=== PATIENT | female | born 1985 | race Caucasian/White ===

== ENCOUNTER → 2017-03-22 | Outpatient (CLI) | payer MEDICAID | END | disposition home or self-care (01) | LOC: CFH 12:20 | PROVIDERS: ATTEND Nurse Practitioner Family | DX: N64.9 Disorder of breast, unspecified (principal) ==

== ENCOUNTER → 2018-04-19 | Outpatient (CLI) | payer MEDICAID ==
[~2018-04-19] MED LIST: OMNIPAQUE 350 MG/ML, 100ML BOTTLE ONE
== END | disposition home or self-care (01) ==
LOC: RAD 15:51
PROVIDERS: ATTEND Nurse Practitioner Family
DX: G51.0 Bell's palsy (principal); J45.909 Unspecified asthma, uncomplicated; R53.83 Other fatigue; H57.12 Ocular pain, left eye
CPT/HCPCS: 70460; Q9967

== ENCOUNTER 2019-11-09 05:23 | Inpatient (IN) | payer MEDICAID ==
[~2019-11-09] VITALS: Ht 160 cm; Wt 79.0 kg
[2019-11-09] MEDS ORDERED: NEWBORN KIT ONE (05:27)
[2019-11-09] MEDS ORDERED: SODIUM CITRATE/CITRIC ACID 30 ML UDC ONE (05:28)
[2019-11-09] MEDS ORDERED: OXYTOCIN 30U/ 0.9% NaCL 500ML 500 ML ONE (05:28)
[2019-11-09] MEDS ORDERED: METOCLOPRAMIDE 5 MG/ML, 2ML ONE (05:28)
[2019-11-09 05:30] VITALS: BP 119/72
[2019-11-09] MEDS ORDERED: SODIUM CITRATE/CITRIC ACID 30 ML UDC PO ONE (05:30)
[2019-11-09] MEDS ORDERED: METOCLOPRAMIDE 5 MG/ML, 2ML IV ONE (05:30)
[2019-11-09] MEDS ORDERED: LACTATED RINGERS 1,000 ML IVBOLUS ONE (05:30)
[2019-11-09 05:54] LABS: BASOPHILS # (AUTO) 0.03 x10^3/uL (0-0.1); BASOPHILS % (AUTO) 0 % (0-1); EOSINOPHILS # (AUTO) 0.07 x10^3/uL (0-0.4); EOSINOPHILS % (AUTO) 1 % (1-7); LYMPHOCYTES # (AUTO) 1.67 x10^3/uL (1-3.4); LYMPHOCYTES % (AUTO) 22 % (22-44); MD NO; MEAN CORPUSCULAR HEMOGLOBIN 29.8 pg (27.0-34.8); MEAN CORPUSCULAR HGB CONC 33.2 g/dL (32.4-35.8); MEAN CORPUSCULAR VOLUME 89.8 fL (80-100); MEAN PLATELET VOLUME 8.8 fL (7.4-10.4); MONOCYTES # (AUTO) 0.46 x10^3/uL (0.2-0.8); MONOCYTES % (AUTO) 6 % (2-9); NEUTROPHILS # (AUTO) 5.41 x10^3/uL (1.8-6.8); NEUTROPHILS % (AUTO) 71 % (42-75); PLATELET COUNT 231 x10^3/uL (130-400); RED BLOOD COUNT 4.49 x10^6/uL (3.82-5.3); RED CELL DISTRIBUTION WIDTH 14.6 % (9.6-15.2)
[2019-11-09] MEDS: LACTATED RINGERS 1,000 ML IV SCH ×6 (07:14→19:05)
[2019-11-09] MEDS ORDERED: ONDANSETRON 2MG/ML, 2ML ONE (07:34)
[2019-11-09] MEDS ORDERED: SODIUM CHLORIDE 0.9% PF 10ML ONE (07:34)
[2019-11-09] MEDS ORDERED: WATER-INJECTION,STERILE 10 ML IV ONE (07:34)
[2019-11-09] MEDS ORDERED: DEXAMETHASONE 4 MG/ML, 1ML ONE (07:34)
[2019-11-09] MEDS ORDERED: CEFAZOLIN 1,000 MG ONE (07:34)
[2019-11-09] MEDS ORDERED: OXYTOCIN 10 UNITS/ML, 1ML ONE ×2 (07:34→07:50)
[2019-11-09] MEDS ORDERED: morphine SULFATE/PF 0.5 MG/ML, 10ML ONE (07:34)
[2019-11-09] MEDS ORDERED: PHENYLEPHRINE 10 MG/ML ONE (07:34)
[2019-11-09] MEDS ORDERED: KETOROLAC 30 MG/1 ML ONE (07:34)
[2019-11-09] MEDS: OXYTOCIN 30U/ 0.9% NaCL 500ML 500 ML IV SCH ×2 (09:15→19:05)
[2019-11-09] MEDS ORDERED: BISACODYL 10 MG SUPP PR PRN (09:30)
[2019-11-09] MEDS ORDERED: TRANEXAMIC ACID 1,000 MG in SODIUM CHLORIDE 0.9% 100 ML IVPB ONE (09:30)
[2019-11-09] MEDS ORDERED: IBUPROFEN 800 MG TABLET PO PRN (09:30)
[2019-11-09] MEDS ORDERED: morphine SULFATE 10 MG/ML, 1ML IV PRN (09:30)
[2019-11-09] MEDS ORDERED: MORPHINE SULFATE 4 MG/ML, 1ML IVPush PRN (09:30)
[2019-11-09] MEDS ORDERED: GLYCERIN ADULT SUPP PR PRN (09:30)
[2019-11-09] MEDS ORDERED: MISOPROSTOL 200 MCG TABLET PR PRN (09:30)
[2019-11-09] MEDS ORDERED: ONDANSETRON 2MG/ML, 2ML IV PRN (09:30)
[2019-11-09] MEDS ORDERED: METHYLERGONOVINE 0.2 MG/ML IM PRN (09:30)
[2019-11-09] MEDS ORDERED: SIMETHICONE 80 MG CHEW TAB PO PRN (09:30)
[2019-11-09] MEDS ORDERED: OXYcodone/APAP 5/325MG TABLET ONE (10:01)
[2019-11-09] MEDS: OXYcodone/APAP 5/325MG TABLET PO PRN (10:04)
[2019-11-09 11:23] VITALS: BP 108/71
[2019-11-09] MEDS ORDERED: NO SEDATIVES, TRANQUILIZERS OR ANTIEMETICS XX SCH (12:30)
[2019-11-09] MEDS ORDERED: EPHEDRINE 50 MG/ML, 1ML IVPush PRN (12:30)
[2019-11-09] MEDS ORDERED: DIPHENHYDRAMINE 50 MG/ML, 1ML IVPush PRN (12:30)
[2019-11-09] MEDS ORDERED: MORPHINE SULFATE 4 MG/ML, 1ML IV PRN (12:30)
[2019-11-09] MEDS ORDERED: DIPHENHYDRAMINE 50 MG/ML, 1ML IV PRN (12:30)
[2019-11-09] MEDS ORDERED: NALOXONE 0.4 MG/ML, 1ML IV PRN (12:30)
[2019-11-09] MEDS ORDERED: ONDANSETRON 2MG/ML, 2ML IVPush PRN (12:30)
[2019-11-09] MEDS: KETOROLAC 30 MG/1 ML IVPush SCH ×2 (13:49→21:19)
[2019-11-09 15:53] LABS: MEAN CORPUSCULAR HEMOGLOBIN 29.2 pg (27.0-34.8); MEAN CORPUSCULAR HGB CONC 32.4 g/dL (32.4-35.8); MEAN PLATELET VOLUME 8.5 fL (7.4-10.4); PLATELET COUNT 216 x10^3/uL (130-400); RED BLOOD COUNT 4.47 x10^6/uL (3.82-5.3); RED CELL DISTRIBUTION WIDTH 13.9 % (9.6-15.2)
[2019-11-09 16:05] LABS: BASOPHILS % (AUTO) 0 % (0-1); EOSINOPHILS % (AUTO) 0 % (1-7); LYMPHOCYTES % (AUTO) 6 % (22-44); MD NO; MONOCYTES # (AUTO) 0.26 x10^3/uL (0.2-0.8); MONOCYTES % (AUTO) 2 % (2-9); NEUTROPHILS # (AUTO) 11.63 x10^3/uL (1.8-6.8); NEUTROPHILS % (AUTO) 92 % (42-75)
[2019-11-09 16:09] VITALS: BP 100/62
[2019-11-09 19:45] VITALS: BP 109/72
[2019-11-10 00:45] VITALS: BP 100/55
[2019-11-10] MEDS: LACTATED RINGERS 1,000 ML IV SCH ×5 (01:05→17:05)
[2019-11-10] MEDS: KETOROLAC 30 MG/1 ML IVPush SCH (03:13)
[2019-11-10] MEDS: OXYTOCIN 30U/ 0.9% NaCL 500ML 500 ML IV SCH ×2 (05:05→15:05)
[2019-11-10 07:45] VITALS: BP 102/71
[2019-11-10] MEDS: DOCUSATE 100 MG CAPSULE PO PRN ×2 (08:20→20:27)
[2019-11-10] MEDS: PRENATAL VIT/IRON/FA 1 EACH TABLET PO SCH (08:20)
[2019-11-10] MEDS: OXYcodone/APAP 5/325MG TABLET PO PRN ×3 (09:28→21:54)
[2019-11-10] MEDS: IBUPROFEN 800 MG TABLET PO PRN (14:22)
[2019-11-10 19:10] VITALS: BP 94/65
[2019-11-11] MEDS: OXYTOCIN 30U/ 0.9% NaCL 500ML 500 ML IV SCH ×2 (01:05→11:05)
[2019-11-11] MEDS: LACTATED RINGERS 1,000 ML IV SCH ×4 (01:05→11:05)
[2019-11-11] MEDS: IBUPROFEN 800 MG TABLET PO PRN ×2 (03:14→11:16)
[2019-11-11] MEDS: OXYcodone/APAP 5/325MG TABLET PO PRN (03:14)
[2019-11-11 07:53] VITALS: BP 100/69
[2019-11-11] MEDS: PRENATAL VIT/IRON/FA 1 EACH TABLET PO SCH (08:52)
[2019-11-11] MEDS: DOCUSATE 100 MG CAPSULE PO PRN (08:52)
[2019-11-11] MEDS ORDERED: DIPH,PERTUSS(ACELL),TET VAC/PF NC IM-VACC ONE ×2 (13:08→13:30)
[2019-11-11] MEDS ORDERED: DOCU-131 PO (13:38)
[2019-11-11] MEDS ORDERED: IBUP-1223 PO (13:38)
[2019-11-11] MEDS ORDERED: OXYC-302 PO (13:38)
== END 2019-11-11 13:55 | disposition home or self-care (01) | DRG 788 ==
LOC: LDIP 05:23 → 2NW 11:03
PROVIDERS: ADMIT Obstetrics & Gynecology; ATTEND Obstetrics & Gynecology
PROC: 10D00Z1 Extraction of Products of Conception, Low, Open Approach (ICD-10-PCS; principal; 2019-11-09)
DX: O69.81X0 Labor and delivery complicated by cord around neck, without compression, not applicable or unspecified (principal); O34.211 Maternal care for low transverse scar from previous cesarean delivery; O99.52 Diseases of the respiratory system complicating childbirth; J45.909 Unspecified asthma, uncomplicated; Z37.0 Single live birth; Z3A.40 40 weeks gestation of pregnancy
CPT/HCPCS: 36415; 85025; 86592; 86850; 86900; 90715; G0378; J0690; J1100; J1885; J2274; J2405; J2370; J2590; J2765; J7120